=== PATIENT | male | born 1955 | race African-American/Black ===

== ENCOUNTER 2019-09-21 12:00 | Inpatient (IN) | payer MEDICAID ==
[~2019-09-21] VITALS: Ht 185.4 cm; Wt 166.2 kg
[2019-09-21 12:58] LABS: BG BASE EXCESS 5.6 mmol/L (-2.0-2.0); BG CARBOXYHEMOGLOBIN 0.8 % (0.5-1.5); BG DEOXYHEMOGLOBIN 4.3 % (0.0-5.0); BG HCO3 ACT 32.3 mmol/L (22.0-26.0); BG METHEMOGLOBIN 0.1 % (0.0-1.5); BG OXYGEN SATURATION 95.7 % (92.0-98.5); BG OXYHEMOGLOBIN 94.8 % (94.0-97.0); BG PCO2 55.9 mmHg (35.0-45.0); BG PH 7.379 (7.350-7.450); BG PO2 83.4 mmHg (75.0-100.0); BG SAMPLE SITE RIGHT RADIAL; BG TOTAL HEMOGLOBIN 13.4 g/dL (12.0-18.0); BG VENT MODE NASAL CANNULA
[2019-09-21 13:15] LABS: BASOPHILS % 0.6 % (0.0-2.0); EOSINOPHILS % 0.1 % (0.0-5.0); HEMATOCRIT. 38.8 % (42.0-52.0); HEMOGLOBIN. 12.8 g/dL (14.0-18.0); LYMPHOCYTES % 21.9 % (20.0-50.0); MEAN CORPUSCULAR VOLUME 93.7 fL (80.0-94.0); MEAN PLATELET VOLUME 10.2 fl (7.4-10.4); NEUTROPHILS % 68.4 % (40.0-76.0); PLATELET 79 x1000/uL (130-400); RED BLOOD CELL COUNT 4.14 mill/uL (4.7-6.1); RED CELL DISTRIBUTION WIDTH 14.8 % (11.6-14.6)
[2019-09-21 13:20] LABS: PROTHROMBIN TIME 10.5 sec (9.6-11.0)
[2019-09-21 13:24] LABS: CHLORIDE 95 mEq/L (98-107)
[2019-09-21 17:37] LABS: CLARITY URINE CLEAR (CLEAR); COLOR URINE DARK YELLOW (YELLOW); KETONES URINE TRACE (NEGATIVE); LEUKOCYTE ESTERASE URINE TRACE (NEGATIVE); NITRITE URINE NEGATIVE (NEGATIVE); OCCULT BLOOD URINE NEGATIVE (NEGATIVE); PH URINE 5.5 (4.5-8.0); PROTEIN URINE 2+ (NEGATIVE); SPECIFIC GRAVITY URINE 1.025 (1.005-1.030)
[2019-09-21] MEDS ORDERED: LEVOFLOXACIN 750MG PREMIX 150 ML IV ONE (19:15)
[2019-09-21] MEDS ORDERED: CLONIDINE 0.1MG TABLET PO PRN (23:15)
[2019-09-21] MEDS ORDERED: ONDANSETRON HCL 4MG/2ML INJ IV PRN (23:15)
[2019-09-21] MEDS ORDERED: DOCUSATE SODIUM 100MG CAPSULE PO PRN (23:15)
[2019-09-21] MEDS ORDERED: MAGNESIUM/ALUMINUM HYDROXIDE/SIMETHICONE 30ML UDC PO PRN (23:15)
[2019-09-21] MEDS ORDERED: NA PHOS,M-B/NA PHOS,DI-BA ENEMA 118ML PR PRN (23:15)
[2019-09-21] MEDS ORDERED: ACETAMINOPHEN 650MG/20.3ML UDC GT PRN ×2 (23:15)
[2019-09-21] MEDS ORDERED: ACETAMINOPHEN 650MG SUPP PR PRN ×2 (23:15)
[2019-09-21] MEDS ORDERED: HYDROXYCHLOROQUINE SULFATE 200MG TABLET PO SCH (23:15)
[2019-09-22] MEDS: ACETAMINOPHEN 325MG TABLET PO PRN ×2 (02:00→23:40)
[2019-09-22 08:30] VITALS: BP 153/88
[2019-09-22 09:00] VITALS: BP 153/88
[2019-09-22 09:59] LABS: BASOPHILS % 0.5 % (0.0-2.0); HEMATOCRIT. 40.5 % (42.0-52.0); HEMOGLOBIN. 13.2 g/dL (14.0-18.0); LYMPHOCYTES % 21.1 % (20.0-50.0); MEAN CORPUSCULAR VOLUME 94.7 fL (80.0-94.0); MEAN PLATELET VOLUME 10.3 fl (7.4-10.4); MONOCYTES % 7.5 % (2.0-8.0); NEUTROPHILS % 70.9 % (40.0-76.0); PLATELET 97 x1000/uL (130-400); RED BLOOD CELL COUNT 4.27 mill/uL (4.7-6.1); RED CELL DISTRIBUTION WIDTH 14.8 % (11.6-14.6)
[2019-09-22 10:14] LABS: CHLORIDE 94 mEq/L (98-107)
[2019-09-22 10:28] LABS: LDL CHOLESTEROL 36 mg/dL (5-100)
[2019-09-22 10:31] LABS: HDL CHOLESTEROL 27 mg/dL (40-59)
[2019-09-22] MEDS: ZINC SULFATE 220 MG ( 50 ) CAPSULE PO SCH (10:41)
[2019-09-22] MEDS ORDERED: AZITHROMYCIN 500 MG TABLET PO NR (11:56)
[2019-09-22 12:00] VITALS: BP 148/81
[2019-09-22] MEDS: SODIUM CHLORIDE 0.9% INJ 3ML FLUSH IVF SCH ×2 (13:16→21:53)
[2019-09-22 16:00] VITALS: BP 159/78
[2019-09-22] MEDS: CEFTRIAXONE 1 G PREMIX 50 ML IV SCH (17:26)
[2019-09-22] MEDS: THIAMINE HCL 100MG TABLET PO SCH (17:27)
[2019-09-22] MEDS: ASCORBIC ACID 500 MG TABLET PO SCH (17:27)
[2019-09-22 18:34] LABS: COVID-19 PCR RNA DETECTED
[2019-09-22 18:35] LABS: COVID-19 PCR RNA DETECTED
[2019-09-22 20:00] VITALS: BP 130/70
[2019-09-22 21:29] LABS: *AMPHETAMINES SCREEN URINE NEGATIVE (NEGATIVE); *BARBITURATES SCREEN URINE NEGATIVE (NEGATIVE)
[2019-09-22 21:30] LABS: *BENZODIAZEPINES SCREEN URINE NEGATIVE (NEGATIVE); *COCAINE SCREEN URINE NEGATIVE (NEGATIVE); CANNABINOID URINE SCREEN NEGATIVE (NEGATIVE); OPIATES URINE SCREEN PRESUMTIVE POSITIVE (NEGATIVE); PHENCYCLIDINE URINE SCREEN NEGATIVE (NEGATIVE)
[2019-09-22 21:32] LABS: METHADONE URINE SCREEN NEGATIVE (NEGATIVE)
[2019-09-22] MEDS: HYDROXYCHLOROQUINE SULFATE 200MG TABLET PO SCH (21:53)
[2019-09-23] VITALS: BP 167/86
[2019-09-23 04:00] VITALS: BP 130/76
[2019-09-23] MEDS: SODIUM CHLORIDE 0.9% INJ 3ML FLUSH IVF SCH ×3 (04:52→21:32)
[2019-09-23 08:00] VITALS: BP 139/79
[2019-09-23] MEDS: ASCORBIC ACID 500 MG TABLET PO SCH ×2 (08:48→16:04)
[2019-09-23] MEDS: HYDROXYCHLOROQUINE SULFATE 200MG TABLET PO SCH ×2 (08:48→16:03)
[2019-09-23] MEDS: THIAMINE HCL 100MG TABLET PO SCH ×2 (08:48→16:04)
[2019-09-23] MEDS: AZITHROMYCIN 250 MG TABLET PO SCH (08:49)
[2019-09-23] MEDS: ZINC SULFATE 220 MG ( 50 ) CAPSULE PO SCH (08:49)
[2019-09-23] MEDS: HYDROCODONE/ACETAMINOPHEN 5/325MG TABLET PO PRN ×2 (09:13→16:03)
[2019-09-23 12:00] VITALS: BP 120/63
[2019-09-23] MEDS: CEFTRIAXONE 1 G PREMIX 50 ML IV SCH (13:19)
[2019-09-23] MEDS: ACETAMINOPHEN 325MG TABLET PO PRN ×2 (13:19→21:30)
[2019-09-23] MEDS ORDERED: ATOR10TA MT (14:56)
[2019-09-23] MEDS ORDERED: LOSA50TA41 MT (14:56)
[2019-09-23] MEDS ORDERED: TIMO5DRO27 EACHEYE (14:56)
[2019-09-23] MEDS ORDERED: PROT40 MT (14:56)
[2019-09-23] MEDS ORDERED: IPRA3AMP9 HHN (14:56)
[2019-09-23] MEDS ORDERED: METF500T MT (14:56)
[2019-09-23] MEDS ORDERED: TERA5CAP4 MT (14:56)
[2019-09-23] MEDS ORDERED: AZOPT EACHEYE (14:56)
[2019-09-23] MEDS ORDERED: DICL100G31 TP (14:56)
[2019-09-23] MEDS ORDERED: BRIM.2 EACHEYE (14:56)
[2019-09-23] MEDS ORDERED: GABA300C MT (14:56)
[2019-09-23] MEDS ORDERED: IPRA3AMP9 NEB (14:56)
[2019-09-23] MEDS ORDERED: LISI-604 MT (14:56)
[2019-09-23] MEDS ORDERED: HYDR25TA MT (14:56)
[2019-09-23] MEDS ORDERED: CLON0.1T14 MT (14:56)
[2019-09-23] MEDS ORDERED: HYDR-3280 MT (14:56)
[2019-09-23] MEDS ORDERED: DULO60CA64 MT (14:56)
[2019-09-23] MEDS ORDERED: POTA20TA82 MT (14:56)
[2019-09-23 16:00] VITALS: BP 121/70
[2019-09-23 20:00] VITALS: BP 170/80
[2019-09-23] MEDS ORDERED: TIMOLOL EACHEYE SCH (20:45)
[2019-09-23] MEDS ORDERED: MEDICATION NOT ON FORMULARY EA (Hydrocodone Bit/Acetaminophen (Hydrocodon-Acetaminophn 1 MT PRN (20:45)
[2019-09-23] MEDS ORDERED: MEDICATION NOT ON FORMULARY EA (Brinzolamide (Azopt) 1 DROP) EACHEYE SCH (20:45)
[2019-09-23] MEDS ORDERED: DICLOFENAC SODIUM TP SCH (21:00)
[2019-09-23] MEDS: ATORVASTATIN CALCIUM 10MG TABLET PO SCH (21:30)
[2019-09-23] MEDS: CLONIDINE 0.1MG TABLET PO SCH (21:30)
[2019-09-23] MEDS: TERAZOSIN HCL 5MG CAPSULE PO SCH (21:30)
[2019-09-23] MEDS: METFORMIN HCL 500MG TABLET PO SCH (21:31)
[2019-09-23] MEDS: LOSARTAN POTASSIUM 50 MG TABLET PO SCH (21:31)
[2019-09-23] MEDS: GABAPENTIN 300MG CAPSULE PO SCH (21:31)
[2019-09-23] MEDS: DORZOLAMIDE 2% OPHTH 10 ML BOTTLE EACHEYE SCH (21:34)
[2019-09-23] MEDS: TIMOLOL MALEATE 0.5% OPHTH DROPS 5ML EACHEYE SCH (21:34)
[2019-09-23] MEDS: BRIMONIDINE 0.2% OPHTH DROPS 5ML EACHEYE SCH (21:34)
[2019-09-23] MEDS: DULOXETINE HCL 60MG DR CAPSULE PO SCH (21:39)
[2019-09-23] MEDS: HYDROCHLOROTHIAZIDE 25MG TABLET PO SCH (21:39)
[2019-09-23] MEDS: ALBUTEROL 6.7GM HFA INHALER ORI SCH (22:20)
[2019-09-24] VITALS: BP 115/72
[2019-09-24 04:00] VITALS: BP 140/70
[2019-09-24] MEDS: ALBUTEROL 6.7GM HFA INHALER ORI SCH ×3 (05:00→17:58)
[2019-09-24] MEDS: SODIUM CHLORIDE 0.9% INJ 3ML FLUSH IVF SCH ×3 (05:00→22:27)
[2019-09-24] MEDS: ACETAMINOPHEN 325MG TABLET PO PRN ×2 (05:05→18:02)
[2019-09-24 06:37] LABS: BG BASE EXCESS 8.1 mmol/L (-2.0-2.0); BG CARBOXYHEMOGLOBIN 0.8 % (0.5-1.5); BG DEOXYHEMOGLOBIN 5.2 % (0.0-5.0); BG METHEMOGLOBIN 0.3 % (0.0-1.5); BG OXYGEN SATURATION 94.7 % (92.0-98.5); BG OXYHEMOGLOBIN 93.7 % (94.0-97.0); BG PCO2 64.9 mmHg (35.0-45.0); BG PH 7.362 (7.350-7.450); BG PO2 76.3 mmHg (75.0-100.0); BG SAMPLE SITE RIGHT RADIAL; BG TOTAL HEMOGLOBIN 14.2 g/dL (12.0-18.0); BG VENT MODE MASK - NRB
[2019-09-24 06:42] LABS: BASOPHILS % 0.5 % (0.0-2.0); HEMATOCRIT. 39.3 % (42.0-52.0); HEMOGLOBIN. 12.8 g/dL (14.0-18.0); LYMPHOCYTES % 12.3 % (20.0-50.0); MEAN CORPUSCULAR HEMOGLOBIN 30.8 pg (28.0-32.0); MEAN CORPUSCULAR VOLUME 94.6 fL (80.0-94.0); MEAN PLATELET VOLUME 9.3 fl (7.4-10.4); MONOCYTES % 7.6 % (2.0-8.0); NEUTROPHILS % 79.6 % (40.0-76.0); PLATELET 131 x1000/uL (130-400); RED BLOOD CELL COUNT 4.15 mill/uL (4.7-6.1)
[2019-09-24 06:59] LABS: CHLORIDE 95 mEq/L (98-107)
[2019-09-24 07:07] LABS: CREATINE KINASE MB FRACTION 3.9 ng/mL (0.5-3.6)
[2019-09-24 07:08] LABS: PHOSPHORUS 3.5 mg/dL (2.5-4.9)
[2019-09-24] MEDS: METFORMIN HCL 500MG TABLET PO SCH ×2 (07:10→17:55)
[2019-09-24 08:00] VITALS: BP 100/58
[2019-09-24 08:27] LABS: C REACTIVE PROTEIN QUANT > 190.0 mg/L (0.0-3.0)
[2019-09-24] MEDS: DULOXETINE HCL 60MG DR CAPSULE PO SCH (09:43)
[2019-09-24] MEDS: ASCORBIC ACID 500 MG TABLET PO SCH ×2 (09:43→18:01)
[2019-09-24] MEDS: ZINC SULFATE 220 MG ( 50 ) CAPSULE PO SCH (09:43)
[2019-09-24] MEDS: THIAMINE HCL 100MG TABLET PO SCH ×2 (09:44→17:55)
[2019-09-24] MEDS: CLONIDINE 0.1MG TABLET PO SCH ×2 (09:44→22:28)
[2019-09-24] MEDS: HYDROCHLOROTHIAZIDE 25MG TABLET PO SCH (09:44)
[2019-09-24] MEDS: HYDROXYCHLOROQUINE SULFATE 200MG TABLET PO SCH ×2 (09:44→17:55)
[2019-09-24] MEDS: GABAPENTIN 300MG CAPSULE PO SCH ×3 (09:44→18:01)
[2019-09-24] MEDS: LOSARTAN POTASSIUM 50 MG TABLET PO SCH (09:44)
[2019-09-24] MEDS: AZITHROMYCIN 250 MG TABLET PO SCH (09:44)
[2019-09-24] MEDS: DORZOLAMIDE 2% OPHTH 10 ML BOTTLE EACHEYE SCH ×2 (09:45→17:57)
[2019-09-24] MEDS: TIMOLOL MALEATE 0.5% OPHTH DROPS 5ML EACHEYE SCH ×2 (09:45→17:57)
[2019-09-24] MEDS: BRIMONIDINE 0.2% OPHTH DROPS 5ML EACHEYE SCH ×2 (09:45→17:57)
[2019-09-24 12:00] VITALS: BP 106/61
[2019-09-24] MEDS: ENOXAPARIN 40MG/0.4ML SYR SUBCUT SCH ×2 (13:15→22:29)
[2019-09-24] MEDS: METHYLPREDNISOLONE SOD SUCC 40 MG/ML VIAL IV SCH ×2 (14:00→22:27)
[2019-09-24] MEDS: CEFTRIAXONE 1 G PREMIX 50 ML IV SCH (14:18)
[2019-09-24 16:00] VITALS: BP 142/95
[2019-09-24 20:00] VITALS: BP 120/70
[2019-09-24] MEDS: TERAZOSIN HCL 5MG CAPSULE PO SCH (22:26)
[2019-09-24] MEDS: PANTOPRAZOLE 40MG DR TABLET PO SCH (22:27)
[2019-09-24] MEDS: ATORVASTATIN CALCIUM 10MG TABLET PO SCH (22:29)
[2019-09-25] VITALS: BP 130/80
[2019-09-25] MEDS: DOXYCYCLINE 100 MG in DEXT 5% WATER 100 ML IV SCH ×3 (00:25→20:58)
[2019-09-25] MEDS: ALBUTEROL 6.7GM HFA INHALER ORI SCH ×4 (00:26→18:08)
[2019-09-25 04:00] VITALS: BP 120/75
[2019-09-25] MEDS: METFORMIN HCL 500MG TABLET PO SCH ×2 (06:19→18:08)
[2019-09-25] MEDS: SODIUM CHLORIDE 0.9% INJ 3ML FLUSH IVF SCH ×3 (06:19→20:59)
[2019-09-25] MEDS: PANTOPRAZOLE 40MG DR TABLET PO SCH (06:20)
[2019-09-25 08:00] VITALS: BP 160/95
[2019-09-25] MEDS: ASCORBIC ACID 500 MG TABLET PO SCH ×2 (08:55→18:07)
[2019-09-25] MEDS: ZINC SULFATE 220 MG ( 50 ) CAPSULE PO SCH (08:55)
[2019-09-25] MEDS: LOSARTAN POTASSIUM 50 MG TABLET PO SCH (08:55)
[2019-09-25] MEDS: DULOXETINE HCL 60MG DR CAPSULE PO SCH (08:55)
[2019-09-25] MEDS: THIAMINE HCL 100MG TABLET PO SCH ×2 (08:56→18:08)
[2019-09-25] MEDS: GABAPENTIN 300MG CAPSULE PO SCH ×3 (08:56→18:07)
[2019-09-25] MEDS: CLONIDINE 0.1MG TABLET PO SCH ×2 (08:56→20:57)
[2019-09-25] MEDS: HYDROXYCHLOROQUINE SULFATE 200MG TABLET PO SCH (08:56)
[2019-09-25] MEDS: HYDROCHLOROTHIAZIDE 25MG TABLET PO SCH (08:56)
[2019-09-25] MEDS: TIMOLOL MALEATE 0.5% OPHTH DROPS 5ML EACHEYE SCH ×2 (08:57→18:08)
[2019-09-25] MEDS: BRIMONIDINE 0.2% OPHTH DROPS 5ML EACHEYE SCH ×2 (08:57→18:08)
[2019-09-25] MEDS: DORZOLAMIDE 2% OPHTH 10 ML BOTTLE EACHEYE SCH ×2 (08:57→18:08)
[2019-09-25] MEDS: ENOXAPARIN 40MG/0.4ML SYR SUBCUT SCH ×2 (09:00→20:58)
[2019-09-25] MEDS: METHYLPREDNISOLONE SOD SUCC 40 MG/ML VIAL IV SCH ×2 (10:30→20:56)
[2019-09-25 12:00] VITALS: BP 120/85
[2019-09-25] MEDS: CEFTRIAXONE 1 G PREMIX 50 ML IV SCH (14:18)
[2019-09-25 16:00] VITALS: BP_SYST 131; BP_SYST 136; BP_DIAS 78; BP_DIAS 86
[2019-09-25 20:00] VITALS: BP 127/70
[2019-09-25] MEDS: TERAZOSIN HCL 5MG CAPSULE PO SCH (20:56)
[2019-09-25] MEDS: ATORVASTATIN CALCIUM 10MG TABLET PO SCH (20:57)
[2019-09-26] VITALS: BP 112/70
[2019-09-26 04:00] VITALS: BP 118/68
[2019-09-26] MEDS: SODIUM CHLORIDE 0.9% INJ 3ML FLUSH IVF SCH ×3 (05:30→21:39)
[2019-09-26] MEDS: METFORMIN HCL 500MG TABLET PO SCH ×2 (05:30→17:07)
[2019-09-26] MEDS: PANTOPRAZOLE 40MG DR TABLET PO SCH (05:30)
[2019-09-26] MEDS: ALBUTEROL 6.7GM HFA INHALER ORI SCH ×5 (05:31→23:41)
[2019-09-26 05:53] LABS: CHLORIDE 98 mEq/L (98-107)
[2019-09-26 06:04] LABS: CREATINE KINASE MB FRACTION 4.9 ng/mL (0.5-3.6)
[2019-09-26 06:32] LABS: BASOPHILS % 0.2 % (0.0-2.0); HEMATOCRIT. 39.2 % (42.0-52.0); HEMOGLOBIN. 12.8 g/dL (14.0-18.0); LYMPHOCYTES % 8.2 % (20.0-50.0); MEAN CORPUSCULAR HEMOGLOBIN 30.5 pg (28.0-32.0); MEAN CORPUSCULAR VOLUME 93.5 fL (80.0-94.0); MEAN PLATELET VOLUME 9.6 fl (7.4-10.4); MONOCYTES % 9.7 % (2.0-8.0); NEUTROPHILS % 81.9 % (40.0-76.0); PLATELET 223 x1000/uL (130-400); RED BLOOD CELL COUNT 4.19 mill/uL (4.7-6.1)
[2019-09-26 08:00] VITALS: BP 129/76
[2019-09-26] MEDS ORDERED: METHYLPREDNISOLONE SOD SUCC 40 MG/ML VIAL IV SCH (09:00)
[2019-09-26] MEDS: GABAPENTIN 300MG CAPSULE PO SCH ×3 (09:22→17:07)
[2019-09-26] MEDS: DORZOLAMIDE 2% OPHTH 10 ML BOTTLE EACHEYE SCH ×2 (09:22→17:10)
[2019-09-26] MEDS: HYDROCHLOROTHIAZIDE 25MG TABLET PO SCH (09:22)
[2019-09-26] MEDS: BRIMONIDINE 0.2% OPHTH DROPS 5ML EACHEYE SCH ×2 (09:22→17:10)
[2019-09-26] MEDS: ZINC SULFATE 220 MG ( 50 ) CAPSULE PO SCH (09:22)
[2019-09-26] MEDS: DOXYCYCLINE 100 MG in DEXT 5% WATER 100 ML IV SCH (09:22)
[2019-09-26] MEDS: TIMOLOL MALEATE 0.5% OPHTH DROPS 5ML EACHEYE SCH ×2 (09:22→17:10)
[2019-09-26] MEDS: CLONIDINE 0.1MG TABLET PO SCH ×2 (09:23→21:25)
[2019-09-26] MEDS: THIAMINE HCL 100MG TABLET PO SCH (09:23)
[2019-09-26] MEDS: DULOXETINE HCL 60MG DR CAPSULE PO SCH (09:23)
[2019-09-26] MEDS: LOSARTAN POTASSIUM 50 MG TABLET PO SCH (09:23)
[2019-09-26] MEDS: ASCORBIC ACID 500 MG TABLET PO SCH ×2 (09:23→17:07)
[2019-09-26] MEDS: ENOXAPARIN 40MG/0.4ML SYR SUBCUT SCH (11:55)
[2019-09-26] MEDS: CEFTRIAXONE 1 G PREMIX 50 ML IV SCH (11:55)
[2019-09-26 12:00] VITALS: BP 131/60
[2019-09-26] MEDS ORDERED: FUROSEMIDE 40MG/4ML VIAL IVP NR (13:15)
[2019-09-26] MEDS ORDERED: ENOXAPARIN 120MG/0.8ML SYR SUBCUT NR (13:30)
[2019-09-26] MEDS: FLUTICASONE FUROATE 100 1 INH/CAP ORI SCH ×2 (15:12→21:38)
[2019-09-26 16:00] VITALS: BP 127/68
[2019-09-26 20:00] VITALS: BP 149/78
[2019-09-26] MEDS: DOXYCYCLINE HYCLATE 100MG CAPSULE PO SCH (21:24)
[2019-09-26] MEDS: TERAZOSIN HCL 5MG CAPSULE PO SCH (21:26)
[2019-09-26] MEDS: ATORVASTATIN CALCIUM 10MG TABLET PO SCH (21:26)
[2019-09-26] MEDS: DIPHENHYDRAMINE 50MG/ML VIAL IV PRN (23:22)
[2019-09-26] MEDS: ENOXAPARIN 150MG/ML SYR SUBCUT SCH (23:35)
[2019-09-27] VITALS: BP 120/81
[2019-09-27 04:00] VITALS: BP 128/56
[2019-09-27] MEDS: PANTOPRAZOLE 40MG DR TABLET PO SCH (06:52)
[2019-09-27] MEDS: METFORMIN HCL 500MG TABLET PO SCH ×2 (06:52→16:53)
[2019-09-27] MEDS: ALBUTEROL 6.7GM HFA INHALER ORI SCH ×3 (06:53→18:24)
[2019-09-27] MEDS: SODIUM CHLORIDE 0.9% INJ 3ML FLUSH IVF SCH ×3 (06:55→22:16)
[2019-09-27 08:00] VITALS: BP 110/71
[2019-09-27] MEDS: ZINC SULFATE 220 MG ( 50 ) CAPSULE PO SCH (08:43)
[2019-09-27] MEDS: GABAPENTIN 300MG CAPSULE PO SCH ×3 (08:43→16:53)
[2019-09-27] MEDS: ASCORBIC ACID 500 MG TABLET PO SCH ×2 (08:43→16:53)
[2019-09-27] MEDS: HYDROCHLOROTHIAZIDE 25MG TABLET PO SCH (08:44)
[2019-09-27] MEDS: DOXYCYCLINE HYCLATE 100MG CAPSULE PO SCH ×2 (08:44→21:03)
[2019-09-27] MEDS: CLONIDINE 0.1MG TABLET PO SCH ×2 (08:44→21:03)
[2019-09-27] MEDS: LOSARTAN POTASSIUM 50 MG TABLET PO SCH (08:44)
[2019-09-27] MEDS: DULOXETINE HCL 60MG DR CAPSULE PO SCH (08:44)
[2019-09-27] MEDS: DORZOLAMIDE 2% OPHTH 10 ML BOTTLE EACHEYE SCH ×2 (08:45→16:52)
[2019-09-27] MEDS: BRIMONIDINE 0.2% OPHTH DROPS 5ML EACHEYE SCH ×2 (08:45→16:52)
[2019-09-27] MEDS: TIMOLOL MALEATE 0.5% OPHTH DROPS 5ML EACHEYE SCH ×2 (08:45→16:52)
[2019-09-27] MEDS: FLUTICASONE FUROATE 100 1 INH/CAP ORI SCH ×2 (08:45→21:00)
[2019-09-27] MEDS: ENOXAPARIN 150MG/ML SYR SUBCUT SCH ×2 (08:51→21:03)
[2019-09-27 12:00] VITALS: BP 103/68
[2019-09-27] MEDS: CEFTRIAXONE 1 G PREMIX 50 ML IV SCH (12:14)
[2019-09-27 16:00] VITALS: BP 104/62
[2019-09-27 20:00] VITALS: BP 124/68
[2019-09-27] MEDS: TERAZOSIN HCL 5MG CAPSULE PO SCH (21:03)
[2019-09-27] MEDS: ATORVASTATIN CALCIUM 10MG TABLET PO SCH (21:03)
[2019-09-27] MEDS: HYDROCODONE/ACETAMINOPHEN 5/325MG TABLET PO PRN (22:13)
[2019-09-28] VITALS: BP 112/64
[2019-09-28 04:00] VITALS: BP 116/68
[2019-09-28] MEDS: PANTOPRAZOLE 40MG DR TABLET PO SCH (05:39)
[2019-09-28] MEDS: METFORMIN HCL 500MG TABLET PO SCH ×2 (05:39→17:11)
[2019-09-28] MEDS: SODIUM CHLORIDE 0.9% INJ 3ML FLUSH IVF SCH ×3 (05:41→21:57)
[2019-09-28] MEDS: ALBUTEROL 6.7GM HFA INHALER ORI SCH ×4 (05:41→17:18)
[2019-09-28 08:02] VITALS: BP 152/99
[2019-09-28] MEDS: ZINC SULFATE 220 MG ( 50 ) CAPSULE PO SCH (08:04)
[2019-09-28] MEDS: DULOXETINE HCL 60MG DR CAPSULE PO SCH (08:05)
[2019-09-28] MEDS: CLONIDINE 0.1MG TABLET PO SCH ×2 (08:05→21:55)
[2019-09-28] MEDS: ENOXAPARIN 150MG/ML SYR SUBCUT SCH ×2 (08:05→21:58)
[2019-09-28] MEDS: ASCORBIC ACID 500 MG TABLET PO SCH ×2 (08:05→17:11)
[2019-09-28] MEDS: HYDROCHLOROTHIAZIDE 25MG TABLET PO SCH (08:05)
[2019-09-28] MEDS: DOXYCYCLINE HYCLATE 100MG CAPSULE PO SCH ×2 (08:05→21:55)
[2019-09-28] MEDS: GABAPENTIN 300MG CAPSULE PO SCH ×3 (08:05→17:11)
[2019-09-28] MEDS: LOSARTAN POTASSIUM 50 MG TABLET PO SCH (08:05)
[2019-09-28] MEDS: DORZOLAMIDE 2% OPHTH 10 ML BOTTLE EACHEYE SCH ×2 (08:10→17:18)
[2019-09-28] MEDS: TIMOLOL MALEATE 0.5% OPHTH DROPS 5ML EACHEYE SCH ×2 (08:10→17:18)
[2019-09-28] MEDS: FLUTICASONE FUROATE 100 1 INH/CAP ORI SCH ×2 (08:10→21:56)
[2019-09-28] MEDS: BRIMONIDINE 0.2% OPHTH DROPS 5ML EACHEYE SCH ×2 (08:11→17:18)
[2019-09-28 12:00] VITALS: BP 117/76
[2019-09-28 16:00] VITALS: BP 116/83
[2019-09-28 20:00] VITALS: BP 116/68
[2019-09-28] MEDS: TERAZOSIN HCL 5MG CAPSULE PO SCH (21:55)
[2019-09-28] MEDS: ATORVASTATIN CALCIUM 10MG TABLET PO SCH (21:56)
[2019-09-28] MEDS: ZOLPIDEM TARTRATE 5MG TABLET PO PRN (22:01)
[2019-09-29] MEDS: ALBUTEROL 6.7GM HFA INHALER ORI SCH ×4 (00:29→18:48)
[2019-09-29 04:00] VITALS: BP 143/71
[2019-09-29 04:35] LABS: CHLORIDE 100 mEq/L (98-107)
[2019-09-29] MEDS: SODIUM CHLORIDE 0.9% INJ 3ML FLUSH IVF SCH ×3 (05:06→22:00)
[2019-09-29] MEDS: PANTOPRAZOLE 40MG DR TABLET PO SCH (05:46)
[2019-09-29] MEDS: METFORMIN HCL 500MG TABLET PO SCH ×2 (05:46→17:28)
[2019-09-29 06:27] LABS: HEMATOCRIT. 41.2 % (42.0-52.0); HEMOGLOBIN. 13.2 g/dL (14.0-18.0); MEAN CORPUSCULAR HEMOGLOBIN 30.2 pg (28.0-32.0); MEAN CORPUSCULAR VOLUME 94.3 fL (80.0-94.0); MEAN PLATELET VOLUME 9.5 fl (7.4-10.4); PLATELET 277 x1000/uL (130-400); RED BLOOD CELL COUNT 4.37 mill/uL (4.7-6.1); RED CELL DISTRIBUTION WIDTH 14.8 % (11.6-14.6)
[2019-09-29 08:00] VITALS: BP 141/82
[2019-09-29] MEDS: ENOXAPARIN 150MG/ML SYR SUBCUT SCH ×2 (09:00→21:27)
[2019-09-29] MEDS: DULOXETINE HCL 60MG DR CAPSULE PO SCH (09:04)
[2019-09-29] MEDS: GABAPENTIN 300MG CAPSULE PO SCH ×3 (09:04→17:28)
[2019-09-29] MEDS: DOXYCYCLINE HYCLATE 100MG CAPSULE PO SCH ×2 (09:04→21:26)
[2019-09-29] MEDS: LOSARTAN POTASSIUM 50 MG TABLET PO SCH (09:04)
[2019-09-29] MEDS: HYDROCHLOROTHIAZIDE 25MG TABLET PO SCH (09:04)
[2019-09-29] MEDS: ZINC SULFATE 220 MG ( 50 ) CAPSULE PO SCH (09:04)
[2019-09-29] MEDS: CLONIDINE 0.1MG TABLET PO SCH ×2 (09:12→21:26)
[2019-09-29] MEDS: FLUTICASONE FUROATE 100 1 INH/CAP ORI SCH ×2 (09:13→21:35)
[2019-09-29] MEDS: TIMOLOL MALEATE 0.5% OPHTH DROPS 5ML EACHEYE SCH ×2 (09:14→17:43)
[2019-09-29] MEDS: BRIMONIDINE 0.2% OPHTH DROPS 5ML EACHEYE SCH ×2 (09:14→17:43)
[2019-09-29] MEDS: DORZOLAMIDE 2% OPHTH 10 ML BOTTLE EACHEYE SCH ×2 (09:14→17:43)
[2019-09-29 12:00] VITALS: BP 136/77
[2019-09-29 13:49] LABS: PLATELET ESTIMATE NORMAL
[2019-09-29 16:00] VITALS: BP 115/83
[2019-09-29 20:00] VITALS: BP 134/80
[2019-09-29] MEDS: ATORVASTATIN CALCIUM 10MG TABLET PO SCH (21:26)
[2019-09-29] MEDS: TERAZOSIN HCL 5MG CAPSULE PO SCH (21:26)
[2019-09-29] MEDS: FAMOTIDINE 20MG TABLET PO SCH (21:27)
[2019-09-29] MEDS: ZOLPIDEM TARTRATE 5MG TABLET PO PRN (23:16)
[2019-09-29] MEDS: DIPHENHYDRAMINE 50MG/ML VIAL IV PRN (23:16)
[2019-09-30] VITALS: BP 127/75
[2019-09-30] MEDS: ALBUTEROL 6.7GM HFA INHALER ORI SCH ×4 (01:03→18:18)
[2019-09-30 04:15] VITALS: BP 116/70
[2019-09-30] MEDS: SODIUM CHLORIDE 0.9% INJ 3ML FLUSH IVF SCH ×3 (05:23→21:28)
[2019-09-30 08:00] VITALS: BP 124/79
[2019-09-30] MEDS: CLONIDINE 0.1MG TABLET PO SCH ×2 (08:52→21:00)
[2019-09-30] MEDS: METFORMIN HCL 500MG TABLET PO SCH ×2 (08:52→18:16)
[2019-09-30] MEDS: DULOXETINE HCL 60MG DR CAPSULE PO SCH (08:52)
[2019-09-30] MEDS: FAMOTIDINE 20MG TABLET PO SCH ×2 (08:52→21:23)
[2019-09-30] MEDS: HYDROCHLOROTHIAZIDE 25MG TABLET PO SCH (08:53)
[2019-09-30] MEDS: LOSARTAN POTASSIUM 50 MG TABLET PO SCH (08:53)
[2019-09-30] MEDS: ZINC SULFATE 220 MG ( 50 ) CAPSULE PO SCH (08:53)
[2019-09-30] MEDS: BRIMONIDINE 0.2% OPHTH DROPS 5ML EACHEYE SCH ×2 (08:59→18:18)
[2019-09-30] MEDS: TIMOLOL MALEATE 0.5% OPHTH DROPS 5ML EACHEYE SCH ×2 (08:59→18:18)
[2019-09-30] MEDS: FLUTICASONE FUROATE 100 1 INH/CAP ORI SCH ×2 (09:00→21:53)
[2019-09-30] MEDS: DORZOLAMIDE 2% OPHTH 10 ML BOTTLE EACHEYE SCH ×2 (09:00→18:18)
[2019-09-30] MEDS: ENOXAPARIN 150MG/ML SYR SUBCUT SCH ×2 (09:33→21:26)
[2019-09-30] MEDS: GABAPENTIN 300MG CAPSULE PO SCH ×3 (09:33→18:16)
[2019-09-30 12:00] VITALS: BP 105/59
[2019-09-30 16:00] VITALS: BP 103/68
[2019-09-30 20:00] VITALS: BP 99/61
[2019-09-30] MEDS: ZOLPIDEM TARTRATE 5MG TABLET PO PRN (21:23)
[2019-09-30] MEDS: ATORVASTATIN CALCIUM 10MG TABLET PO SCH (21:23)
[2019-09-30] MEDS: TERAZOSIN HCL 5MG CAPSULE PO SCH (21:24)
[2019-10-01] VITALS: BP 120/84
[2019-10-01] MEDS: ALBUTEROL 6.7GM HFA INHALER ORI SCH ×5 (00:24→23:17)
[2019-10-01] MEDS: DIPHENHYDRAMINE 50MG/ML VIAL IV PRN ×2 (00:56→23:29)
[2019-10-01] MEDS: SODIUM CHLORIDE 0.9% INJ 3ML FLUSH IVF SCH ×3 (05:18→21:53)
[2019-10-01 06:08] VITALS: BP 141/86
[2019-10-01 08:00] VITALS: BP 149/97
[2019-10-01] MEDS: ENOXAPARIN 150MG/ML SYR SUBCUT SCH ×2 (08:19→21:06)
[2019-10-01] MEDS: HYDROCHLOROTHIAZIDE 25MG TABLET PO SCH (08:19)
[2019-10-01] MEDS: FAMOTIDINE 20MG TABLET PO SCH ×2 (08:20→21:09)
[2019-10-01] MEDS: GABAPENTIN 300MG CAPSULE PO SCH ×3 (08:20→16:34)
[2019-10-01] MEDS: CLONIDINE 0.1MG TABLET PO SCH ×2 (08:20→21:00)
[2019-10-01] MEDS: METFORMIN HCL 500MG TABLET PO SCH ×2 (08:20→16:34)
[2019-10-01] MEDS: ZINC SULFATE 220 MG ( 50 ) CAPSULE PO SCH (08:20)
[2019-10-01] MEDS: DULOXETINE HCL 60MG DR CAPSULE PO SCH (08:23)
[2019-10-01] MEDS: FLUTICASONE FUROATE 100 1 INH/CAP ORI SCH ×2 (08:29→21:08)
[2019-10-01] MEDS: TIMOLOL MALEATE 0.5% OPHTH DROPS 5ML EACHEYE SCH ×2 (08:29→16:35)
[2019-10-01] MEDS: BRIMONIDINE 0.2% OPHTH DROPS 5ML EACHEYE SCH ×2 (08:30→16:35)
[2019-10-01] MEDS: DORZOLAMIDE 2% OPHTH 10 ML BOTTLE EACHEYE SCH ×2 (08:30→16:35)
[2019-10-01 12:00] VITALS: BP 128/78
[2019-10-01] MEDS ORDERED: FUROSEMIDE 40MG/4ML VIAL IV SCH (12:15)
[2019-10-01] MEDS: LOSARTAN POTASSIUM 50 MG TABLET PO SCH (13:13)
[2019-10-01 16:00] VITALS: BP 108/67
[2019-10-01 20:00] VITALS: BP 115/62
[2019-10-01] MEDS: ZOLPIDEM TARTRATE 5MG TABLET PO PRN (21:09)
[2019-10-01] MEDS: ATORVASTATIN CALCIUM 10MG TABLET PO SCH (21:09)
[2019-10-01] MEDS: TERAZOSIN HCL 5MG CAPSULE PO SCH (21:09)
[2019-10-02] VITALS: BP 136/78
[2019-10-02 04:00] VITALS: BP 121/69
[2019-10-02] MEDS: ALBUTEROL 6.7GM HFA INHALER ORI SCH (05:57)
[2019-10-02] MEDS: SODIUM CHLORIDE 0.9% INJ 3ML FLUSH IVF SCH ×3 (06:20→21:16)
[2019-10-02 06:54] LABS: CHLORIDE 101 mEq/L (98-107)
[2019-10-02 07:00] LABS: HEMATOCRIT. 39.3 % (42.0-52.0); HEMOGLOBIN. 12.8 g/dL (14.0-18.0); MEAN CORPUSCULAR HEMOGLOBIN 30.8 pg (28.0-32.0); MEAN CORPUSCULAR VOLUME 94.8 fL (80.0-94.0); MEAN PLATELET VOLUME 9.2 fl (7.4-10.4); PLATELET 255 x1000/uL (130-400); RED BLOOD CELL COUNT 4.15 mill/uL (4.7-6.1); RED CELL DISTRIBUTION WIDTH 14.4 % (11.6-14.6)
[2019-10-02] MEDS: CLONIDINE 0.1MG TABLET PO SCH ×2 (07:56→21:22)
[2019-10-02] MEDS: METFORMIN HCL 500MG TABLET PO SCH ×2 (07:56→16:41)
[2019-10-02] MEDS: LOSARTAN POTASSIUM 50 MG TABLET PO SCH (07:56)
[2019-10-02] MEDS: FAMOTIDINE 20MG TABLET PO SCH ×2 (07:56→21:14)
[2019-10-02] MEDS: ZINC SULFATE 220 MG ( 50 ) CAPSULE PO SCH (07:56)
[2019-10-02] MEDS: ENOXAPARIN 150MG/ML SYR SUBCUT SCH ×2 (07:57→21:22)
[2019-10-02] MEDS: GABAPENTIN 300MG CAPSULE PO SCH ×3 (07:57→16:41)
[2019-10-02] MEDS: DULOXETINE HCL 60MG DR CAPSULE PO SCH (07:57)
[2019-10-02] MEDS: HYDROCHLOROTHIAZIDE 25MG TABLET PO SCH (07:57)
[2019-10-02] MEDS: TIMOLOL MALEATE 0.5% OPHTH DROPS 5ML EACHEYE SCH ×2 (07:59→16:41)
[2019-10-02] MEDS: DORZOLAMIDE 2% OPHTH 10 ML BOTTLE EACHEYE SCH ×2 (07:59→16:40)
[2019-10-02] MEDS: BRIMONIDINE 0.2% OPHTH DROPS 5ML EACHEYE SCH ×2 (07:59→16:41)
[2019-10-02 08:00] VITALS: BP 128/76
[2019-10-02] MEDS: FLUTICASONE FUROATE 100 1 INH/CAP ORI SCH ×2 (08:00→21:00)
[2019-10-02 12:10] VITALS: BP 102/74
[2019-10-02 14:38] LABS: PLATELET ESTIMATE NORMAL
[2019-10-02 16:30] VITALS: BP 138/80
[2019-10-02 20:00] VITALS: BP 123/75
[2019-10-02] MEDS: ZOLPIDEM TARTRATE 5MG TABLET PO PRN (21:14)
[2019-10-02] MEDS: TERAZOSIN HCL 5MG CAPSULE PO SCH (21:14)
[2019-10-02] MEDS: DIPHENHYDRAMINE 50MG/ML VIAL IV PRN (21:14)
[2019-10-02] MEDS: ATORVASTATIN CALCIUM 10MG TABLET PO SCH (21:22)
[2019-10-03] VITALS: BP 121/75
[2019-10-03 04:00] VITALS: BP 151/86
[2019-10-03] MEDS: SODIUM CHLORIDE 0.9% INJ 3ML FLUSH IVF SCH ×3 (06:43→21:59)
[2019-10-03 08:00] VITALS: BP 119/72
[2019-10-03] MEDS: DULOXETINE HCL 60MG DR CAPSULE PO SCH (08:56)
[2019-10-03] MEDS: HYDROCHLOROTHIAZIDE 25MG TABLET PO SCH (08:56)
[2019-10-03] MEDS: ZINC SULFATE 220 MG ( 50 ) CAPSULE PO SCH (08:56)
[2019-10-03] MEDS: GABAPENTIN 300MG CAPSULE PO SCH ×3 (08:56→18:12)
[2019-10-03] MEDS: CLONIDINE 0.1MG TABLET PO SCH ×2 (08:56→21:59)
[2019-10-03] MEDS: ENOXAPARIN 150MG/ML SYR SUBCUT SCH ×2 (08:57→21:22)
[2019-10-03] MEDS: METFORMIN HCL 500MG TABLET PO SCH ×2 (08:57→18:12)
[2019-10-03] MEDS: LOSARTAN POTASSIUM 50 MG TABLET PO SCH (08:57)
[2019-10-03] MEDS: FAMOTIDINE 20MG TABLET PO SCH ×2 (08:57→21:23)
[2019-10-03] MEDS: BRIMONIDINE 0.2% OPHTH DROPS 5ML EACHEYE SCH ×2 (09:05→17:00)
[2019-10-03] MEDS: TIMOLOL MALEATE 0.5% OPHTH DROPS 5ML EACHEYE SCH ×2 (09:06→17:00)
[2019-10-03] MEDS: DORZOLAMIDE 2% OPHTH 10 ML BOTTLE EACHEYE SCH ×2 (09:06→17:00)
[2019-10-03] MEDS: FLUTICASONE FUROATE 100 1 INH/CAP ORI SCH ×2 (09:08→21:55)
[2019-10-03] MEDS ORDERED: FUROSEMIDE 40MG/4ML VIAL IVP SCH (10:30)
[2019-10-03 12:00] VITALS: BP 98/67
[2019-10-03] MEDS: SODIUM CHLORIDE 45ML SPRAY NS SCH ×3 (12:00→23:56)
[2019-10-03 16:00] VITALS: BP 110/79
[2019-10-03 20:00] VITALS: BP 111/69
[2019-10-03] MEDS: ATORVASTATIN CALCIUM 10MG TABLET PO SCH (21:23)
[2019-10-03] MEDS: TERAZOSIN HCL 5MG CAPSULE PO SCH (21:58)
[2019-10-03] MEDS ORDERED: ZOLPIDEM TARTRATE 5MG TABLET PO PRN (23:45)
[2019-10-04] VITALS: BP 133/64
[2019-10-04 04:00] VITALS: BP 127/76
[2019-10-04] MEDS: SODIUM CHLORIDE 0.9% INJ 3ML FLUSH IVF SCH ×3 (06:06→21:12)
[2019-10-04] MEDS: METFORMIN HCL 500MG TABLET PO SCH ×2 (06:11→18:11)
[2019-10-04] MEDS: SODIUM CHLORIDE 45ML SPRAY NS SCH ×3 (06:15→18:15)
[2019-10-04] MEDS: ALBUTEROL 6.7GM HFA INHALER ORI SCH ×4 (06:15→18:14)
[2019-10-04 08:00] VITALS: BP 148/97
[2019-10-04] MEDS: DULOXETINE HCL 60MG DR CAPSULE PO SCH (08:58)
[2019-10-04] MEDS: FAMOTIDINE 20MG TABLET PO SCH ×2 (09:12→21:11)
[2019-10-04] MEDS: GABAPENTIN 300MG CAPSULE PO SCH ×3 (09:13→18:10)
[2019-10-04] MEDS: ZINC SULFATE 220 MG ( 50 ) CAPSULE PO SCH (09:16)
[2019-10-04] MEDS: HYDROCHLOROTHIAZIDE 25MG TABLET PO SCH (09:17)
[2019-10-04] MEDS: LOSARTAN POTASSIUM 50 MG TABLET PO SCH (09:17)
[2019-10-04] MEDS: ENOXAPARIN 150MG/ML SYR SUBCUT SCH ×2 (09:17→21:11)
[2019-10-04] MEDS: CLONIDINE 0.1MG TABLET PO SCH ×2 (09:18→21:11)
[2019-10-04] MEDS: TIMOLOL MALEATE 0.5% OPHTH DROPS 5ML EACHEYE SCH ×2 (09:22→18:15)
[2019-10-04] MEDS: DORZOLAMIDE 2% OPHTH 10 ML BOTTLE EACHEYE SCH ×2 (09:22→18:16)
[2019-10-04] MEDS: BRIMONIDINE 0.2% OPHTH DROPS 5ML EACHEYE SCH ×2 (09:22→18:15)
[2019-10-04] MEDS: FLUTICASONE FUROATE 100 1 INH/CAP ORI SCH ×2 (09:23→21:29)
[2019-10-04 12:00] VITALS: BP 118/75
[2019-10-04 16:00] VITALS: BP 128/88
[2019-10-04 20:00] VITALS: BP 124/80
[2019-10-04] MEDS: TERAZOSIN HCL 5MG CAPSULE PO SCH (21:11)
[2019-10-04] MEDS: ATORVASTATIN CALCIUM 10MG TABLET PO SCH (21:11)
[2019-10-05] VITALS: BP 125/75
[2019-10-05] MEDS: DIPHENHYDRAMINE 50MG/ML VIAL IV PRN ×2 (00:03→22:11)
[2019-10-05] MEDS: ALBUTEROL 6.7GM HFA INHALER ORI SCH ×4 (00:05→16:13)
[2019-10-05] MEDS: SODIUM CHLORIDE 45ML SPRAY NS SCH ×4 (00:15→16:13)
[2019-10-05 04:00] VITALS: BP 132/71
[2019-10-05] MEDS: SODIUM CHLORIDE 0.9% INJ 3ML FLUSH IVF SCH ×3 (05:12→21:25)
[2019-10-05] MEDS: METFORMIN HCL 500MG TABLET PO SCH ×2 (05:54→16:10)
[2019-10-05 08:00] VITALS: BP 150/89
[2019-10-05] MEDS: GABAPENTIN 300MG CAPSULE PO SCH ×3 (08:27→16:10)
[2019-10-05] MEDS: FAMOTIDINE 20MG TABLET PO SCH ×2 (08:27→21:24)
[2019-10-05] MEDS: LOSARTAN POTASSIUM 50 MG TABLET PO SCH (08:27)
[2019-10-05] MEDS: CLONIDINE 0.1MG TABLET PO SCH ×2 (08:27→21:24)
[2019-10-05] MEDS: ZINC SULFATE 220 MG ( 50 ) CAPSULE PO SCH (08:27)
[2019-10-05] MEDS: ENOXAPARIN 150MG/ML SYR SUBCUT SCH ×2 (08:28→21:25)
[2019-10-05] MEDS: HYDROCHLOROTHIAZIDE 25MG TABLET PO SCH (08:28)
[2019-10-05] MEDS: DULOXETINE HCL 60MG DR CAPSULE PO SCH (08:28)
[2019-10-05] MEDS: FLUTICASONE FUROATE 100 1 INH/CAP ORI SCH ×2 (09:46→21:00)
[2019-10-05] MEDS: BRIMONIDINE 0.2% OPHTH DROPS 5ML EACHEYE SCH ×2 (09:47→16:13)
[2019-10-05] MEDS: DORZOLAMIDE 2% OPHTH 10 ML BOTTLE EACHEYE SCH ×2 (09:47→16:13)
[2019-10-05] MEDS: TIMOLOL MALEATE 0.5% OPHTH DROPS 5ML EACHEYE SCH ×2 (09:47→16:13)
[2019-10-05 12:00] VITALS: BP 145/86
[2019-10-05 16:00] VITALS: BP 152/82
[2019-10-05 20:00] VITALS: BP 129/83
[2019-10-05 21:07] LABS: BASOPHILS % 0.4 % (0.0-2.0); EOSINOPHILS % 0.9 % (0.0-5.0); HEMATOCRIT. 39.8 % (42.0-52.0); HEMOGLOBIN. 13.1 g/dL (14.0-18.0); LYMPHOCYTES % 27.4 % (20.0-50.0); MEAN CORPUSCULAR VOLUME 94.5 fL (80.0-94.0); MEAN PLATELET VOLUME 10.8 fl (7.4-10.4); MONOCYTES % 11.1 % (2.0-8.0); NEUTROPHILS % 60.2 % (40.0-76.0); PLATELET 209 x1000/uL (130-400); RED BLOOD CELL COUNT 4.21 mill/uL (4.7-6.1); RED CELL DISTRIBUTION WIDTH 14.3 % (11.6-14.6)
[2019-10-05 21:11] LABS: CHLORIDE 99 mEq/L (98-107)
[2019-10-05] MEDS: ATORVASTATIN CALCIUM 10MG TABLET PO SCH (21:24)
[2019-10-06] VITALS: BP 131/71
[2019-10-06] MEDS: SODIUM CHLORIDE 45ML SPRAY NS SCH ×4 (00:17→17:04)
[2019-10-06] MEDS: TERAZOSIN HCL 5MG CAPSULE PO SCH ×2 (00:17→21:07)
[2019-10-06 04:00] VITALS: BP 112/82
[2019-10-06] MEDS: METFORMIN HCL 500MG TABLET PO SCH ×2 (05:30→17:10)
[2019-10-06] MEDS: SODIUM CHLORIDE 0.9% INJ 3ML FLUSH IVF SCH ×3 (05:31→21:11)
[2019-10-06 08:00] VITALS: BP 123/87
[2019-10-06] MEDS: DULOXETINE HCL 60MG DR CAPSULE PO SCH (09:00)
[2019-10-06] MEDS: TIMOLOL MALEATE 0.5% OPHTH DROPS 5ML EACHEYE SCH ×2 (09:19→17:04)
[2019-10-06] MEDS: BRIMONIDINE 0.2% OPHTH DROPS 5ML EACHEYE SCH ×2 (09:19→17:04)
[2019-10-06] MEDS: DORZOLAMIDE 2% OPHTH 10 ML BOTTLE EACHEYE SCH ×2 (09:19→17:05)
[2019-10-06] MEDS: ENOXAPARIN 150MG/ML SYR SUBCUT SCH ×2 (09:19→21:10)
[2019-10-06] MEDS: GABAPENTIN 300MG CAPSULE PO SCH ×3 (09:20→17:02)
[2019-10-06] MEDS: FLUTICASONE FUROATE 100 1 INH/CAP ORI SCH ×2 (09:20→21:07)
[2019-10-06] MEDS: LOSARTAN POTASSIUM 50 MG TABLET PO SCH (09:20)
[2019-10-06] MEDS: CLONIDINE 0.1MG TABLET PO SCH ×2 (09:20→21:07)
[2019-10-06] MEDS: FAMOTIDINE 20MG TABLET PO SCH ×2 (09:20→21:06)
[2019-10-06] MEDS: HYDROCHLOROTHIAZIDE 25MG TABLET PO SCH (09:20)
[2019-10-06] MEDS: ZINC SULFATE 220 MG ( 50 ) CAPSULE PO SCH (09:20)
[2019-10-06 12:00] VITALS: BP 119/69
[2019-10-06] MEDS: ALBUTEROL 6.7GM HFA INHALER ORI SCH ×2 (12:04→17:03)
[2019-10-06 16:00] VITALS: BP 120/75
[2019-10-06 20:00] VITALS: BP 144/84
[2019-10-06] MEDS: ATORVASTATIN CALCIUM 10MG TABLET PO SCH (21:10)
[2019-10-06] MEDS: TRAZODONE HCL 50MG TABLET PO PRN (23:02)
[2019-10-07] VITALS: BP 117/73
[2019-10-07] MEDS: SODIUM CHLORIDE 45ML SPRAY NS SCH ×4 (00:50→17:23)
[2019-10-07] MEDS: ALBUTEROL 6.7GM HFA INHALER ORI SCH ×4 (00:51→17:24)
[2019-10-07 04:00] VITALS: BP 109/67
[2019-10-07] MEDS: SODIUM CHLORIDE 0.9% INJ 3ML FLUSH IVF SCH ×3 (05:56→22:17)
[2019-10-07 08:00] VITALS: BP 140/78
[2019-10-07] MEDS: ENOXAPARIN 150MG/ML SYR SUBCUT SCH ×2 (08:51→21:00)
[2019-10-07] MEDS: LOSARTAN POTASSIUM 50 MG TABLET PO SCH (08:52)
[2019-10-07] MEDS: GABAPENTIN 300MG CAPSULE PO SCH ×3 (08:52→16:23)
[2019-10-07] MEDS: METFORMIN HCL 500MG TABLET PO SCH ×2 (08:52→17:28)
[2019-10-07] MEDS: HYDROCHLOROTHIAZIDE 25MG TABLET PO SCH (08:52)
[2019-10-07] MEDS: CLONIDINE 0.1MG TABLET PO SCH ×2 (08:52→21:00)
[2019-10-07] MEDS: ZINC SULFATE 220 MG ( 50 ) CAPSULE PO SCH (08:52)
[2019-10-07] MEDS: DULOXETINE HCL 60MG DR CAPSULE PO SCH (08:52)
[2019-10-07] MEDS: BRIMONIDINE 0.2% OPHTH DROPS 5ML EACHEYE SCH ×2 (08:55→16:25)
[2019-10-07] MEDS: TIMOLOL MALEATE 0.5% OPHTH DROPS 5ML EACHEYE SCH ×2 (08:55→16:24)
[2019-10-07] MEDS: DORZOLAMIDE 2% OPHTH 10 ML BOTTLE EACHEYE SCH ×2 (08:55→16:25)
[2019-10-07] MEDS: FLUTICASONE FUROATE 100 1 INH/CAP ORI SCH ×2 (08:57→21:00)
[2019-10-07] MEDS: FAMOTIDINE 20MG TABLET PO SCH ×2 (09:11→21:00)
[2019-10-07 12:00] VITALS: BP 104/67
[2019-10-07 16:00] VITALS: BP 112/68
[2019-10-07 20:00] VITALS: BP 109/73
[2019-10-07] MEDS: TERAZOSIN HCL 5MG CAPSULE PO SCH (21:00)
[2019-10-07] MEDS: ATORVASTATIN CALCIUM 10MG TABLET PO SCH (21:00)
[2019-10-07] MEDS: TRAZODONE HCL 50MG TABLET PO PRN (22:17)
[2019-10-08] VITALS: BP 136/88
[2019-10-08 04:00] VITALS: BP 131/74
[2019-10-08] MEDS: ALBUTEROL 6.7GM HFA INHALER ORI SCH ×4 (05:47→18:00)
[2019-10-08] MEDS: SODIUM CHLORIDE 45ML SPRAY NS SCH ×4 (05:47→23:09)
[2019-10-08] MEDS: SODIUM CHLORIDE 0.9% INJ 3ML FLUSH IVF SCH ×3 (05:47→21:13)
[2019-10-08 08:00] VITALS: BP 149/88
[2019-10-08] MEDS: FLUTICASONE FUROATE 100 1 INH/CAP ORI SCH ×2 (09:00→21:00)
[2019-10-08] MEDS: DORZOLAMIDE 2% OPHTH 10 ML BOTTLE EACHEYE SCH ×2 (09:00→17:00)
[2019-10-08] MEDS: TIMOLOL MALEATE 0.5% OPHTH DROPS 5ML EACHEYE SCH ×2 (09:00→17:00)
[2019-10-08] MEDS: BRIMONIDINE 0.2% OPHTH DROPS 5ML EACHEYE SCH ×2 (09:00→17:00)
[2019-10-08] MEDS: GABAPENTIN 300MG CAPSULE PO SCH ×3 (09:05→17:00)
[2019-10-08] MEDS: ZINC SULFATE 220 MG ( 50 ) CAPSULE PO SCH (09:05)
[2019-10-08] MEDS: HYDROCHLOROTHIAZIDE 25MG TABLET PO SCH (09:05)
[2019-10-08] MEDS: LOSARTAN POTASSIUM 50 MG TABLET PO SCH (09:05)
[2019-10-08] MEDS: METFORMIN HCL 500MG TABLET PO SCH ×2 (09:05→18:10)
[2019-10-08] MEDS: CLONIDINE 0.1MG TABLET PO SCH ×2 (09:05→23:01)
[2019-10-08] MEDS: DULOXETINE HCL 60MG DR CAPSULE PO SCH (09:06)
[2019-10-08] MEDS: FAMOTIDINE 20MG TABLET PO SCH ×2 (09:06→21:12)
[2019-10-08] MEDS: ENOXAPARIN 150MG/ML SYR SUBCUT SCH ×2 (09:07→21:11)
[2019-10-08 12:00] VITALS: BP 149/88
[2019-10-08] MEDS: GUAIFENESIN 200MG/10ML SUGAR FREE UDC PO PRN (16:21)
[2019-10-08 20:00] VITALS: BP 121/83
[2019-10-08] MEDS: ATORVASTATIN CALCIUM 10MG TABLET PO SCH (21:12)
[2019-10-08] MEDS: TRAZODONE HCL 50MG TABLET PO PRN (23:01)
[2019-10-08] MEDS: TERAZOSIN HCL 5MG CAPSULE PO SCH (23:19)
[2019-10-09] MEDS: SODIUM CHLORIDE 0.9% INJ 3ML FLUSH IVF SCH ×3 (05:04→21:15)
[2019-10-09] MEDS: SODIUM CHLORIDE 45ML SPRAY NS SCH ×4 (05:06→23:08)
[2019-10-09 05:11] VITALS: BP 135/89
[2019-10-09] MEDS: ALBUTEROL 6.7GM HFA INHALER ORI SCH ×5 (06:00→23:09)
[2019-10-09 08:00] VITALS: BP 134/90
[2019-10-09] MEDS: GABAPENTIN 300MG CAPSULE PO SCH ×3 (08:56→17:41)
[2019-10-09] MEDS: FAMOTIDINE 20MG TABLET PO SCH ×2 (08:56→21:13)
[2019-10-09] MEDS: METFORMIN HCL 500MG TABLET PO SCH ×2 (08:56→18:37)
[2019-10-09] MEDS: ZINC SULFATE 220 MG ( 50 ) CAPSULE PO SCH (08:56)
[2019-10-09] MEDS: HYDROCHLOROTHIAZIDE 25MG TABLET PO SCH (08:56)
[2019-10-09] MEDS: DULOXETINE HCL 60MG DR CAPSULE PO SCH (08:56)
[2019-10-09] MEDS: LOSARTAN POTASSIUM 50 MG TABLET PO SCH (08:56)
[2019-10-09] MEDS: CLONIDINE 0.1MG TABLET PO SCH ×2 (08:56→21:14)
[2019-10-09] MEDS: ENOXAPARIN 150MG/ML SYR SUBCUT SCH ×2 (08:57→21:15)
[2019-10-09] MEDS: FLUTICASONE FUROATE 100 1 INH/CAP ORI SCH ×2 (08:58→21:22)
[2019-10-09] MEDS: TIMOLOL MALEATE 0.5% OPHTH DROPS 5ML EACHEYE SCH ×2 (08:58→17:00)
[2019-10-09] MEDS: BRIMONIDINE 0.2% OPHTH DROPS 5ML EACHEYE SCH ×2 (08:58→17:00)
[2019-10-09] MEDS: DORZOLAMIDE 2% OPHTH 10 ML BOTTLE EACHEYE SCH ×2 (08:58→17:00)
[2019-10-09 12:00] VITALS: BP 148/78
[2019-10-09] MEDS: GUAIFENESIN 200MG/10ML SUGAR FREE UDC PO PRN (17:41)
[2019-10-09 20:00] VITALS: BP 135/63
[2019-10-09] MEDS: TERAZOSIN HCL 5MG CAPSULE PO SCH (21:13)
[2019-10-09] MEDS: ATORVASTATIN CALCIUM 10MG TABLET PO SCH (21:14)
[2019-10-09] MEDS: TRAZODONE HCL 50MG TABLET PO PRN (23:06)
[2019-10-10] VITALS: BP 133/68
[2019-10-10 04:00] VITALS: BP 140/84
[2019-10-10] MEDS: ALBUTEROL 6.7GM HFA INHALER ORI SCH ×3 (06:03→17:10)
[2019-10-10] MEDS: SODIUM CHLORIDE 0.9% INJ 3ML FLUSH IVF SCH ×3 (06:03→21:11)
[2019-10-10] MEDS: SODIUM CHLORIDE 45ML SPRAY NS SCH ×3 (06:04→17:10)
[2019-10-10 08:00] VITALS: BP 131/87
[2019-10-10] MEDS: METFORMIN HCL 500MG TABLET PO SCH ×2 (08:56→17:10)
[2019-10-10] MEDS: ZINC SULFATE 220 MG ( 50 ) CAPSULE PO SCH (08:56)
[2019-10-10] MEDS: DULOXETINE HCL 60MG DR CAPSULE PO SCH (08:56)
[2019-10-10] MEDS: GABAPENTIN 300MG CAPSULE PO SCH ×3 (08:56→17:09)
[2019-10-10] MEDS: LOSARTAN POTASSIUM 50 MG TABLET PO SCH (08:56)
[2019-10-10] MEDS: ENOXAPARIN 150MG/ML SYR SUBCUT SCH ×2 (08:57→21:11)
[2019-10-10] MEDS: HYDROCHLOROTHIAZIDE 25MG TABLET PO SCH (08:57)
[2019-10-10] MEDS: CLONIDINE 0.1MG TABLET PO SCH ×2 (08:58→21:00)
[2019-10-10] MEDS: TIMOLOL MALEATE 0.5% OPHTH DROPS 5ML EACHEYE SCH ×2 (08:59→17:09)
[2019-10-10] MEDS: FLUTICASONE FUROATE 100 1 INH/CAP ORI SCH ×2 (08:59→21:38)
[2019-10-10] MEDS: DORZOLAMIDE 2% OPHTH 10 ML BOTTLE EACHEYE SCH ×2 (08:59→17:09)
[2019-10-10] MEDS: BRIMONIDINE 0.2% OPHTH DROPS 5ML EACHEYE SCH ×2 (08:59→17:09)
[2019-10-10 12:00] VITALS: BP 105/72
[2019-10-10] MEDS: FAMOTIDINE 20MG TABLET PO SCH ×2 (12:30→21:09)
[2019-10-10 16:00] VITALS: BP 92/67
[2019-10-10 20:00] VITALS: BP 108/75
[2019-10-10] MEDS: TERAZOSIN HCL 5MG CAPSULE PO SCH (21:00)
[2019-10-10] MEDS: ATORVASTATIN CALCIUM 10MG TABLET PO SCH (21:09)
[2019-10-10] MEDS: TRAZODONE HCL 50MG TABLET PO PRN (23:03)
[2019-10-11] VITALS: BP 118/73
[2019-10-11] MEDS: ALBUTEROL 6.7GM HFA INHALER ORI SCH ×5 (00:20→23:09)
[2019-10-11] MEDS: SODIUM CHLORIDE 45ML SPRAY NS SCH ×5 (00:20→23:09)
[2019-10-11 04:00] VITALS: BP 135/88
[2019-10-11] MEDS: SODIUM CHLORIDE 0.9% INJ 3ML FLUSH IVF SCH ×3 (05:41→21:36)
[2019-10-11 08:00] VITALS: BP 135/92
[2019-10-11] MEDS: ZINC SULFATE 220 MG ( 50 ) CAPSULE PO SCH (08:50)
[2019-10-11] MEDS: METFORMIN HCL 500MG TABLET PO SCH (08:50)
[2019-10-11] MEDS: LOSARTAN POTASSIUM 50 MG TABLET PO SCH (08:50)
[2019-10-11] MEDS: HYDROCHLOROTHIAZIDE 25MG TABLET PO SCH (08:50)
[2019-10-11] MEDS: GABAPENTIN 300MG CAPSULE PO SCH ×3 (08:50→18:10)
[2019-10-11] MEDS: CLONIDINE 0.1MG TABLET PO SCH ×2 (08:50→21:07)
[2019-10-11] MEDS: FAMOTIDINE 20MG TABLET PO SCH ×2 (08:50→21:07)
[2019-10-11] MEDS: DULOXETINE HCL 60MG DR CAPSULE PO SCH (08:50)
[2019-10-11] MEDS: DORZOLAMIDE 2% OPHTH 10 ML BOTTLE EACHEYE SCH ×2 (09:03→17:00)
[2019-10-11] MEDS: BRIMONIDINE 0.2% OPHTH DROPS 5ML EACHEYE SCH ×2 (09:03→17:00)
[2019-10-11] MEDS: TIMOLOL MALEATE 0.5% OPHTH DROPS 5ML EACHEYE SCH ×2 (09:03→17:00)
[2019-10-11] MEDS: FLUTICASONE FUROATE 100 1 INH/CAP ORI SCH ×2 (09:04→21:35)
[2019-10-11 12:00] VITALS: BP 132/69
[2019-10-11] MEDS: ENOXAPARIN 150MG/ML SYR SUBCUT SCH ×2 (13:27→21:05)
[2019-10-11 16:00] VITALS: BP 129/80
[2019-10-11 20:00] VITALS: BP 134/68
[2019-10-11] MEDS: TERAZOSIN HCL 5MG CAPSULE PO SCH (21:07)
[2019-10-11] MEDS: ATORVASTATIN CALCIUM 10MG TABLET PO SCH (21:07)
[2019-10-11] MEDS: GUAIFENESIN 200MG/10ML SUGAR FREE UDC PO PRN (21:15)
[2019-10-11] MEDS: TRAZODONE HCL 50MG TABLET PO PRN (23:08)
[2019-10-12] VITALS: BP 115/75
[2019-10-12] MEDS: SODIUM CHLORIDE 45ML SPRAY NS SCH ×2 (05:33→12:00)
[2019-10-12] MEDS: ALBUTEROL 6.7GM HFA INHALER ORI SCH ×2 (05:34→12:00)
[2019-10-12] MEDS: SODIUM CHLORIDE 0.9% INJ 3ML FLUSH IVF SCH (05:34)
[2019-10-12 08:00] VITALS: BP 146/80
[2019-10-12] MEDS: TIMOLOL MALEATE 0.5% OPHTH DROPS 5ML EACHEYE SCH (09:00)
[2019-10-12] MEDS: BRIMONIDINE 0.2% OPHTH DROPS 5ML EACHEYE SCH (09:00)
[2019-10-12] MEDS: DORZOLAMIDE 2% OPHTH 10 ML BOTTLE EACHEYE SCH (09:00)
[2019-10-12] MEDS: ENOXAPARIN 150MG/ML SYR SUBCUT SCH (09:02)
[2019-10-12] MEDS: CLONIDINE 0.1MG TABLET PO SCH (09:03)
[2019-10-12] MEDS: HYDROCHLOROTHIAZIDE 25MG TABLET PO SCH (09:03)
[2019-10-12] MEDS: ZINC SULFATE 220 MG ( 50 ) CAPSULE PO SCH (09:03)
[2019-10-12] MEDS: FAMOTIDINE 20MG TABLET PO SCH (09:03)
[2019-10-12] MEDS: DULOXETINE HCL 60MG DR CAPSULE PO SCH (09:04)
[2019-10-12] MEDS: GABAPENTIN 300MG CAPSULE PO SCH ×2 (09:04→14:09)
[2019-10-12] MEDS: FLUTICASONE FUROATE 100 1 INH/CAP ORI SCH (09:05)
[2019-10-12] MEDS: LOSARTAN POTASSIUM 50 MG TABLET PO SCH (09:08)
[2019-10-12 12:00] VITALS: BP 146/80
[2019-10-12 12:39] VITALS: BP 118/77
[2019-10-12 13:00] VITALS: BP 118/77
== END 2019-10-12 16:35 | DRG 720 ==
LOC: ER 12:00 → 7EST 16:51 → ENRESERV 09-22 07:18 → 7EST 09-24 13:43 → 5WST 10-05 17:23 → 7WST 10-06 11:26
PROVIDERS: ADMIT Family Medicine; ATTEND Family Medicine
DX: A41.89 Other specified sepsis (principal); U07.1 COVID-19; J96.01 Acute respiratory failure with hypoxia; J96.02 Acute respiratory failure with hypercapnia; E11.40 Type 2 diabetes mellitus with diabetic neuropathy, unspecified; J12.89 Other viral pneumonia; D64.9 Anemia, unspecified; E66.01 Morbid (severe) obesity due to excess calories; G89.29 Other chronic pain; H40.9 Unspecified glaucoma; I10 Essential (primary) hypertension; M54.30 Sciatica, unspecified side; E66.9 Obesity, unspecified; M19.90 Unspecified osteoarthritis, unspecified site; Z78.9 Other specified health status; Z86.73 Personal history of transient ischemic attack (TIA), and cerebral infarction without residual deficits; Z68.41 Body mass index [BMI] 40.0-44.9, adult; Z79.899 Other long term (current) drug therapy
CPT/HCPCS: 36415; 36600; 71045; 80053; 80061; 80305; 80361; 81003; 82375; 82553; 82728; 82805; 82962; 83605; 83615; 83735; 83880; 84100; 84145; 84484; 85025; 85379; 86140; 86141; 87420; 87635; 87804; 93005; 99285; J0696; J1200; J1650; J1940; J1956; J2920; J3490; J7060

== ENCOUNTER → 2020-11-12 | Outpatient (CLI) | payer MEDICAID ==
[~2020-11-12] MED LIST: ATOR10TA MT; AZOPT EACHEYE; BRIM.2 EACHEYE; CLON0.1T14 MT; DICL100G31 TP; DULO60CA64 MT; GABA300C MT; HYDR-4350 MT; HYDR25TA MT; IPRA3AMP9 HHN; IPRA3AMP9 NEB; LIDOCAINE HCL 2% JELLY 5ML ONE; LISI20TA31 MT; LOSA50TA41 MT; METF500T MT; POTA20TA82 MT; PROT40 MT; TERA5CAP4 MT; TIMO5DRO27 EACHEYE
== END | disposition home or self-care (01) ==
LOC: US 08:25
PROVIDERS: ATTEND Internal Medicine Critical Care Medicine
DX: N40.2 Nodular prostate without lower urinary tract symptoms (principal); N40.0 Benign prostatic hyperplasia without lower urinary tract symptoms
CPT/HCPCS: 76872

== ENCOUNTER 2024-12-23 07:32 | Inpatient (IN) | payer MEDICARE, MEDICAID ==
[~2024-12-23] VITALS: Ht 185.4 cm; Wt 98.0 kg
[2024-12-23] VITALS (53 sets, daily range): BP systolic 55–124; BP diastolic 40–81; PULSE 95–115; RESP 8–30; TEMP 36.8–37.0296; O2SAT 99–100
[~2024-12-23 07:32] MED LIST changes: +ACET250T29 PO; -DICL100G31 TP; +FINA5TAB11 PO; +FOLI-43 PO; +GABA-1180 PO; -GABA300C MT; +HYDR-4001 PO; -HYDR-4350 MT; -HYDR25TA MT; -IPRA3AMP9 HHN; -IPRA3AMP9 NEB; +LATA2.5D14 EACHEYE; -LIDOCAINE HCL 2% JELLY 5ML ONE; -LISI20TA31 MT; +LOSA25TA26 PO; -LOSA50TA41 MT; -POTA20TA82 MT; -PROT40 MT; -TIMO5DRO27 EACHEYE; +TIMO5DRO40 EACHEYE; +TRAZ-251 PO
[2024-12-23 08:09] LABS: HEMATOCRIT. 33.2 % (42.0-52.0); HEMOGLOBIN. 10.0 g/dL (14.0-18.0); MEAN PLATELET VOLUME 10.5 fl (7.4-10.4); PLATELET 91 x1000/uL (130-400); RED BLOOD CELL COUNT 3.58 mill/uL (4.7-6.1); RED CELL DISTRIBUTION WIDTH 15.1 % (11.6-14.6)
[2024-12-23 08:24] LABS: UREA NITROGEN BLOOD 39 mg/dL (9-23)
[2024-12-23 08:26] LABS: ASPARTATE AMINOTRANSFERASE 13 IU/L (<34); BILIRUBIN DIRECT 0.1 mg/dL (<=3.0); BILIRUBIN TOTAL 0.3 mg/dL (0.1-1.0)
[2024-12-23 08:27] LABS: PROTEIN TOTAL 5.8 g/dL (6.0-8.3)
[2024-12-23 08:29] LABS: INR 1.1
[2024-12-23] MEDS: SODIUM CHLORIDE 0.9% (SEPSIS BOLUS) IV ONE (08:29)
[2024-12-23] MEDS: PIPERACILLIN/TAZO 3.375G/50ML 50 ML IV ONE (08:30)
[2024-12-23 08:38] LABS: CREATININE 3.7 mg/dL (0.6-1.3)
[2024-12-23 08:39] LABS: TROPONIN I HIGH SENSITIVITY 84 ng/L (3.0-53)
[2024-12-23 08:59] LABS: BAND% 18.0 % (1.0-6.0); LYMPHOCYTES % MANUAL 9.0 % (20.0-50.0); MONOCYTES % MANUAL 10.0 % (2.0-8.0); NEUTROPHILS % MANUAL 63.0 % (45.0-75.0); PLATELET ESTIMATE DECREASED
[2024-12-23] MEDS: VANCOMYCIN 1G PREMIX 200 ML IV ONE (09:01)
[2024-12-23] MEDS ORDERED: ONDANSETRON HCL 4MG/2ML INJ IV PRN (09:45)
[2024-12-23] MEDS ORDERED: ACETAMINOPHEN 325MG TABLET PO PRN (09:45)
[2024-12-23] MEDS ORDERED: DEXTROSE 50% WATER 50ML SYRINGE IV PRN (09:45)
[2024-12-23] MEDS ORDERED: CLONIDINE 0.1MG TABLET PO PRN (09:45)
[2024-12-23] MEDS: NOREPINEPHRINE 8MG/250ML PMX 250 ML IV SCH (09:46)
[2024-12-23] MEDS: POTASSIUM CHLORIDE 20MEQ TABLET SR PO SCH (10:15)
[2024-12-23] MEDS ORDERED: NOREPINEPHRINE 8MG/250ML PMX 250 ML IV PRN (10:15)
[2024-12-23 10:18] LABS: PHOSPHORUS 4.9 mg/dL (2.5-4.9)
[2024-12-23] MEDS: BLOOD SUGAR DIAGNOSTIC STRIP TEST SCH (11:30)
[2024-12-23] MEDS: INSULIN LISPRO 100 UNITS/ML SUBCUT SCH (12:00)
[2024-12-23] MEDS: PHENYLEPHRINE 50MG/250ML PMX 250 ML IV PRN (12:08)
[2024-12-23] MEDS: PANTOPRAZOLE SODIUM 40 MG/VIAL IV SCH (12:08)
[2024-12-23] MEDS: SODIUM CHLORIDE 0.9% 1,000 ML IV SCH (12:09)
[2024-12-23] MEDS: MAGNESIUM 2 G PREMIX 50 ML IV SCH (12:11)
[2024-12-23 12:23] LABS: BG BASE EXCESS -5.0 mmol/L (-2.0-3.0); BG CARBOXYHEMOGLOBIN 0.4 % (0.5-1.5); BG DEOXYHEMOGLOBIN 0.6 % (0.0-5.0); BG FRACTION INSPIRED OXYGEN 100; BG HCO3 ACT 25.0 mmol/L (21.0-28.0); BG METHEMOGLOBIN 0.3 % (0.5-1.5); BG OXYGEN SATURATION 99.4 % (94.0-98.0); BG OXYHEMOGLOBIN 98.7 % (94.0-98.0); BG PCO2 74.9 mmHg (35.0-48.0); BG PH 7.142 (7.350-7.450); BG PO2 172.6 mmHg (83.0-108.0); BG SAMPLE SITE RIGHT RADIAL; BG TOTAL HEMOGLOBIN 11.6 g/dL (13.5-17.5); BG VENT MODE MASK - NRB
[2024-12-23] MEDS ORDERED: LIDOCAINE HCL 1% 10 MG/ML 10ML VIAL ONE (12:45)
[2024-12-23] MEDS: IPRATROPIUM/ALBUTEROL 0.5-3(2.5)MG/3ML NEB HHN SCH ×2 (13:11→20:38)
[2024-12-23] MEDS: NOREPINEPHRINE 32 MG in DEXT 5% WATER 218 ML IV PRN (14:01)
[2024-12-23] MEDS: PHENYLEPHRINE 100 MG in DEXT 5% WATER 240 ML IV PRN (14:06)
[2024-12-23] MEDS: KCL 20MEQ/100ML PREMIX 100 ML IV SCH (14:06)
[2024-12-23] MEDS: VANCOMYCIN 1GM/200ML PMX (BAXTER) IV SCH (14:45)
[2024-12-23] MEDS: IPRATROPIUM/ALBUTEROL 0.5-3(2.5)MG/3ML NEB HHN PRN (16:21)
[2024-12-23 17:15] LABS: CREATINE KINASE MB FRACTION 8.4 ng/mL (0.5-3.6)
[2024-12-23] MEDS: PIPERACILLIN/TAZO 3.375G/50ML 50 ML IV SCH (17:38)
[2024-12-23 17:45] LABS: TROPONIN I HIGH SENSITIVITY 424 ng/L (3.0-53)
[2024-12-23 17:46] LABS: CLARITY URINE TURBID (CLEAR); COLOR URINE DARK YELLOW (YELLOW); GLUCOSE URINE NEGATIVE (NEGATIVE); KETONES URINE TRACE (NEGATIVE); LEUKOCYTE ESTERASE URINE 3+ (NEGATIVE); NITRITE URINE NEGATIVE (NEGATIVE); OCCULT BLOOD URINE 3+ (NEGATIVE); PH URINE 5.0 (4.5-8.0); PROTEIN URINE 2+ (NEGATIVE); SPECIFIC GRAVITY URINE 1.016 (1.005-1.030); UROBILINOGEN URINE 1.0 E.U./dL (0.2-1.0)
[2024-12-23] MEDS ORDERED: HEPARIN 25,000 UNITS PREMIX 250 ML IV PRN (18:00)
[2024-12-23] MEDS ORDERED: HEPARIN 5000 UNITS/ML VIAL IV SCH (18:00)
[2024-12-23 18:30] LABS: BACTERIA URINE 3+; SQUAMOUS EPITHELIAL CELL URINE FEW /lpf (RARE/1+); WBC URINE TNTC /hpf (0-2)
[2024-12-23] MEDS: ASPIRIN 325MG EC TABLET PO NR (18:31)
[2024-12-23 18:37] LABS: *AMPHETAMINES SCREEN URINE NEGATIVE (NEGATIVE); *BARBITURATES SCREEN URINE NEGATIVE (NEGATIVE); *BENZODIAZEPINES SCREEN URINE NEGATIVE (NEGATIVE); *COCAINE SCREEN URINE NEGATIVE (NEGATIVE); CANNABINOID URINE SCREEN NEGATIVE (NEGATIVE); ECSTASY MDMA SCREEN URINE NEGATIVE (NEGATIVE); METHADONE URINE SCREEN NEGATIVE (NEGATIVE); OPIATES URINE SCREEN NEGATIVE (NEGATIVE); PHENCYCLIDINE URINE SCREEN NEGATIVE (NEGATIVE)
[2024-12-23] MEDS: HEPARIN 25,000 UNITS PREMIX 250 ML IV SCH (19:57)
[2024-12-23] MEDS: DOXYCYCLINE HYCLATE 100MG CAPSULE PO SCH (21:02)
[2024-12-24] VITALS (77 sets, daily range): BP systolic 83–136; BP diastolic 59–98; PULSE 98–113; RESP 12–24; TEMP 36.4–36.7; O2SAT 98–100
[2024-12-24] MEDS ORDERED: HEPARIN BOLUS PRN aPTT <30 IV (02:00)
[2024-12-24 02:25] LABS: CREATINE KINASE MB FRACTION 7.4 ng/mL (0.5-3.6)
[2024-12-24] MEDS: HEPARIN BOLUS PRN aPTT 30-44 IV (02:25)
[2024-12-24 02:43] LABS: TROPONIN I HIGH SENSITIVITY 852.0 ng/L (3.0-53)
[2024-12-24 05:41] LABS: BASOPHILS % 0.1 % (0.0-2.0); EOSINOPHILS % 1.3 % (0.0-5.0); HEMATOCRIT. 33.2 % (42.0-52.0); HEMOGLOBIN. 10.2 g/dL (14.0-18.0); LYMPHOCYTES % 7.8 % (20.0-50.0); MEAN PLATELET VOLUME 11.1 fl (7.4-10.4); MONOCYTES % 10.9 % (2.0-8.0); NEUTROPHILS % 79.9 % (40.0-76.0); PLATELET 72 x1000/uL (130-400); RED BLOOD CELL COUNT 3.61 mill/uL (4.7-6.1); RED CELL DISTRIBUTION WIDTH 15.5 % (11.6-14.6)
[2024-12-24 05:45] LABS: CREATININE 3.9 mg/dL (0.6-1.3)
[2024-12-24 05:46] LABS: UREA NITROGEN BLOOD 49.0 mg/dL (9-23)
[2024-12-24] MEDS ORDERED: ENOXAPARIN 40MG/0.4ML SYR SUBCUT SCH (09:00)
[2024-12-24] MEDS: ASPIRIN 81MG TABLET PO SCH (09:02)
[2024-12-24] MEDS: FINASTERIDE 5MG TABLET PO SCH (09:02)
[2024-12-24 09:48] LABS: BG BASE EXCESS -7.5 mmol/L (-2.0-3.0); BG CARBOXYHEMOGLOBIN 0.8 % (0.5-1.5); BG DEOXYHEMOGLOBIN 4.1 % (0.0-5.0); BG FRACTION INSPIRED OXYGEN 32; BG HCO3 ACT 19.7 mmol/L (21.0-28.0); BG METHEMOGLOBIN 0.3 % (0.5-1.5); BG OXYGEN SATURATION 95.9 % (94.0-98.0); BG OXYHEMOGLOBIN 94.8 % (94.0-98.0); BG PCO2 46.8 mmHg (35.0-48.0); BG PH 7.241 (7.350-7.450); BG PO2 84.3 mmHg (83.0-108.0); BG SAMPLE SITE RIGHT RADIAL; BG TOTAL HEMOGLOBIN 10.6 g/dL (13.5-17.5); BG VENT MODE NASAL CANNULA
[2024-12-24] MEDS: ENOXAPARIN 30MG/0.3ML SYR SUBCUT SCH (09:59)
[2024-12-24 11:54] LABS: T4 FREE 0.7 ng/dL (0.89-1.76)
[2024-12-24 12:07] LABS: TROPONIN I HIGH SENSITIVITY 611 ng/L (3.0-53)
[2024-12-24 12:48] LABS: SODIUM URINE RANDOM 34.0 mEq/L
[2024-12-24 12:56] LABS: CREATININE URINE RANDOM 122.5 mg/dL; UREA NITROGEN URINE RANDOM 249.0 mg/dL
[2024-12-24 14:26] LABS: TRIGLYCERIDE 182 mg/dL (0-150)
[2024-12-24 14:27] LABS: LDL CHOLESTEROL 15 mg/dL (5-100)
[2024-12-24 15:10] LABS: OSMOLALITY URINE 274.0 mOsm/kg (500-850)
[2024-12-24] MEDS: VANCOMYCIN 1.25GM/250ML IV SCH (18:16)
[2024-12-24] MEDS: TRAMADOL 50MG TABLET PO NR (22:45)
[2024-12-24 22:57] LABS: TROPONIN I HIGH SENSITIVITY 478 ng/L (3.0-53)
[2024-12-24] MEDS: BRIMONIDINE 0.2% OPHTH DROPS 5ML LEFTEYE SCH (23:01)
[2024-12-25] VITALS (14 sets, daily range): BP systolic 122–141; BP diastolic 79–90; PULSE 79–100; RESP 13–20; TEMP 36.3–36.8; O2SAT 99–100
[2024-12-25 02:21] LABS: TROPONIN I HIGH SENSITIVITY 483 ng/L (3.0-53)
[2024-12-25 07:03] LABS: BASOPHILS % 0.3 % (0.0-2.0); EOSINOPHILS % 0.3 % (0.0-5.0); HEMATOCRIT. 31.2 % (42.0-52.0); HEMOGLOBIN. 9.9 g/dL (14.0-18.0); LYMPHOCYTES % 7.3 % (20.0-50.0); MEAN PLATELET VOLUME 11.2 fl (7.4-10.4); MONOCYTES % 8.1 % (2.0-8.0); NEUTROPHILS % 84.0 % (40.0-76.0); PLATELET 80 x1000/uL (130-400); RED BLOOD CELL COUNT 3.47 mill/uL (4.7-6.1); RED CELL DISTRIBUTION WIDTH 15.5 % (11.6-14.6)
[2024-12-25 07:16] LABS: CREATININE 3.7 mg/dL (0.6-1.3); UREA NITROGEN BLOOD 59 mg/dL (9-23)
[2024-12-25 07:18] LABS: PHOSPHORUS 4.8 mg/dL (2.5-4.9)
[2024-12-25] MEDS: FAMOTIDINE 20MG/2ML VIAL IV SCH (08:55)
[2024-12-25] MEDS: ACETAMINOPHEN 325MG TABLET PO PRN (09:09)
[2024-12-25] MEDS: CEFTRIAXONE 1GM/50ML 50 ML IV SCH (11:04)
[2024-12-25] MEDS: DOCUSATE SODIUM 100MG CAPSULE PO PRN (17:44)
[2024-12-26] VITALS (16 sets, daily range): BP systolic 138–155; BP diastolic 79–92; PULSE 74–96; RESP 10–21; TEMP 36.3–36.9; O2SAT 97–100
[2024-12-26] MEDS: BUDESONIDE 0.5MG/2ML NEB HHN SCH (01:00)
[2024-12-26 07:30] LABS: PLATELET 91 x1000/uL (130-400); RED BLOOD CELL COUNT 3.55 mill/uL (4.7-6.1); RED CELL DISTRIBUTION WIDTH 15.3 % (11.6-14.6)
[2024-12-26 08:04] LABS: CREATININE 2.8 mg/dL (0.6-1.3); UREA NITROGEN BLOOD 55 mg/dL (9-23)
[2024-12-26 08:06] LABS: PHOSPHORUS 4.4 mg/dL (2.5-4.9)
[2024-12-26] MEDS: ENOXAPARIN 40MG/0.4ML SYR SUBCUT SCH (09:20)
[2024-12-26] MEDS: POLYETHYLENE GLYCOL 3350 (17GM) 1 DOSE PACK PO SCH (11:27)
[2024-12-27] VITALS (15 sets, daily range): BP systolic 140–170; BP diastolic 81–98; PULSE 66–95; RESP 11–21; TEMP 36.7–38; O2SAT 94–100
[2024-12-27] MEDS: LOSARTAN 25 MG TABLET PO SCH (09:54)
[2024-12-27] MEDS: CLONIDINE 0.1MG TABLET PO SCH (09:54)
[2024-12-27 13:32] LABS: PLATELET 107 x1000/uL (130-400); RED BLOOD CELL COUNT 3.67 mill/uL (4.7-6.1); RED CELL DISTRIBUTION WIDTH 15.4 % (11.6-14.6)
[2024-12-27 13:51] LABS: CREATININE 2.1 mg/dL (0.6-1.3); UREA NITROGEN BLOOD 45 mg/dL (9-23)
[2024-12-27 13:53] LABS: PHOSPHORUS 4.1 mg/dL (2.5-4.9)
[2024-12-27] MEDS: EMPAGLIFLOZIN 25MG TABLET PO SCH (17:31)
[2024-12-27] MEDS ORDERED: EMPA10TA MT (19:41)
[2024-12-27] MEDS ORDERED: FURO-151 MT (19:41)
[2024-12-27] MEDS ORDERED: SULF1TAB48 MT (19:41)
[2024-12-27] MEDS: TERAZOSIN HCL 5MG CAPSULE PO SCH (21:55)
[2024-12-28] VITALS (8 sets, daily range): BP systolic 128–152; BP diastolic 77–95; PULSE 88–104; RESP 16–23; TEMP 36.6–37; O2SAT 95–99
[2024-12-28 09:49] LABS: PLATELET 114 x1000/uL (130-400); RED BLOOD CELL COUNT 3.96 mill/uL (4.7-6.1); RED CELL DISTRIBUTION WIDTH 15.2 % (11.6-14.6)
[2024-12-28 10:08] LABS: CREATININE 2.0 mg/dL (0.6-1.3)
[2024-12-28 10:09] LABS: UREA NITROGEN BLOOD 41 mg/dL (9-23)
[2024-12-28 10:11] LABS: PHOSPHORUS 4.0 mg/dL (2.5-4.9)
== END 2024-12-28 09:58 | DRG 871 ==
LOC: ER 07:32 → MICUSO 09:06 → EDBEDREQ 09:09 → EDBEDREQTM 09:09 → EDBEDREQSVC 09:09 → ENRESERV 09:18 → 5EST 12-24 18:05
PROVIDERS: ADMIT Internal Medicine; ATTEND Internal Medicine
PROC: 5A09357 Assistance with Respiratory Ventilation, Less than 24 Consecutive Hours, Continuous Positive Airway Pressure (ICD-10-PCS; principal; 2024-12-23)
PROC: 05H533Z Insertion of Infusion Device into Right Subclavian Vein, Percutaneous Approach (ICD-10-PCS; 2024-12-23)
PROC: B546ZZA Ultrasonography of Right Subclavian Vein, Guidance (ICD-10-PCS; 2024-12-23)
DX: A41.9 Sepsis, unspecified organism (principal); G93.41 Metabolic encephalopathy; I21.A1 Myocardial infarction type 2; L89.513 Pressure ulcer of right ankle, stage 3; R65.21 Severe sepsis with septic shock; N17.0 Acute kidney failure with tubular necrosis; J96.02 Acute respiratory failure with hypercapnia; J96.01 Acute respiratory failure with hypoxia; J44.1 Chronic obstructive pulmonary disease with (acute) exacerbation; M62.82 Rhabdomyolysis; E66.2 Morbid (severe) obesity with alveolar hypoventilation; Z68.41 Body mass index [BMI] 40.0-44.9, adult; I10 Essential (primary) hypertension; E11.65 Type 2 diabetes mellitus with hyperglycemia; L30.8 Other specified dermatitis; E87.6 Hypokalemia; H40.9 Unspecified glaucoma; M54.30 Sciatica, unspecified side; N30.90 Cystitis, unspecified without hematuria; N40.0 Benign prostatic hyperplasia without lower urinary tract symptoms; D53.9 Nutritional anemia, unspecified; B96.20 Unspecified Escherichia coli [E. coli] as the cause of diseases classified elsewhere; B96.89 Other specified bacterial agents as the cause of diseases classified elsewhere; E78.5 Hyperlipidemia, unspecified; Z99.81 Dependence on supplemental oxygen; Z79.899 Other long term (current) drug therapy; D69.6 Thrombocytopenia, unspecified
CPT/HCPCS: 36415; 36573; 36600; 71045; 76705; 76770; 78580; 80048; 80061; 80076; 80202; 80305; 81003; 82375; 82550; 82553; 82570; 82805; 82962; 83036; 83605; 83735; 83880; 83930; 83935; 84100; 84145; 84300; 84439; 84443; 84484; 84540; 85025; 85027; 87077; 87186; 93005; 93306; 93970; 94070; 94640; 94660; 94664; 97162; 97166; 97530; 99291; A4606; C1725; J0696; J1308; J1644; J1650; J1815; J2003; J2371; J2470; J2543; J3373; J3475; J3480; J3490; J7030; J7060; J7626